=== PATIENT | male | born 1955 | race Caucasian/White ===

== ENCOUNTER → 2016-11-17 | Outpatient (CLI) | payer BC ==
[~2016-11-17] MED LIST: BUPIVACAINE MPF 0.25% 10 ML VIAL. ONE; IOHEXOL 300 MG/ML 50 ML VIAL. ONE; LIDOCAINE 1% PF 30 ML VIAL. ONE; methylPREDNISolone ACETATE 40 MG/ML VIAL. ONE
== END | disposition home or self-care (01) ==
LOC: SURG 14:00
PROVIDERS: ATTEND Anesthesiology Pain Medicine
DX: M54.16 Radiculopathy, lumbar region (principal); I10 Essential (primary) hypertension
CPT/HCPCS: 64483; 64484; J1030; J2001; J3490; Q9967

== ENCOUNTER → 2016-11-19 | Outpatient (CLI) | payer BC ==
--- NOTE | 2016-11-19 15:13 | RAD ---
Cervical spine radiograph 11/19/2016 at 1001 hours Indication: Neck pain and left finger numbness Comparison: None available Technique: AP, lateral and odontoid views of the cervical spine are provided. Findings: The cervical spine is visualized from the craniocervical junction through the inferior endplate of C7. There is minimal retrolisthesis of C4 on C5. Mild multilevel facet arthropathy is noted. There is anterior marginal osteophytosis from C4-C5 through C6-C7. Small posterior osteophyte is noted at C3-C4 and C4-C5. The lateral masses of C1 vertebral body articulate normally with C2. Mild uncovertebral joint arthropathy is noted. There is no prevertebral soft tissue swelling. Impression: Mild multilevel degenerative changes with minimal retrolisthesis of C4 on C5.
== END | disposition home or self-care (01) ==
LOC: DXRADRC 09:53
PROVIDERS: ATTEND Psychiatry & Neurology Neurology
DX: M47.892 Other spondylosis, cervical region (principal); M12.88 Other specific arthropathies, not elsewhere classified, other specified site; M25.78 Osteophyte, vertebrae; R20.0 Anesthesia of skin
CPT/HCPCS: 72040

== ENCOUNTER → 2017-01-12 | Outpatient (CLI) | payer BC ==
[~2017-01-12] MED LIST changes: +DEXAMETHASONE SOD PHOS 4 MG/ML VIAL ONE; -methylPREDNISolone ACETATE 40 MG/ML VIAL. ONE
== END | disposition home or self-care (01) ==
LOC: SURG 12:35
PROVIDERS: ATTEND Anesthesiology Pain Medicine
DX: M54.16 Radiculopathy, lumbar region (principal); I10 Essential (primary) hypertension
CPT/HCPCS: 64483; 64484; J1100; J2001; J3490; Q9967

== ENCOUNTER → 2017-08-19 | Outpatient (CLI) | payer BC ==
[~2017-08-19] MED LIST changes: -BUPIVACAINE MPF 0.25% 10 ML VIAL. ONE; -DEXAMETHASONE SOD PHOS 4 MG/ML VIAL ONE; +IOHEXOL 240 MG/ML 50ML VIAL. PO ONE; -IOHEXOL 300 MG/ML 50 ML VIAL. ONE; +IOHEXOL 300 MG/ML 75 ML VIAL. IV ONE; -LIDOCAINE 1% PF 30 ML VIAL. ONE
--- NOTE | 2017-08-19 16:37 | RAD ---
CT of the abdomen with and without contrast, 08/19/2017: HISTORY: Increased liver enzymes Multidetector CT imaging was performed prior to and following an IV bolus injection of iodinated contrast material. No oral contrast material was administered for this study. The postcontrast scans were obtained in a portal venous phase as well as two other delayed phases. There is a moderate volume of ascites in the abdomen. The hepatic margins are irregular compatible with hepatic cirrhosis. No hepatic mass is identified. There are several small gallstones in the gallbladder extending into the gallbladder neck. There is mild diffuse gallbladder wall thickening. No pancreatic abnormality is detected. The spleen is mildly enlarged measuring 13 cm in craniocaudad extent. No renal abnormality is detected. There is mild aortic calcific plaquing without evidence of aneurysm.No retroperitoneal adenopathy is seen. Several small celiac region lymph nodes are seen without definite pathologic enlargement. There is streaky increased density in the mesentery compatible with edema. No mesenteric adenopathy is identified. The bowel loops are not dilated. There are moderate scattered degenerative changes in the spine. IMPRESSION: 1. Hepatic cirrhosis with mild splenomegaly, moderate ascites and diffuse mesenteric edema compatible with associated portal hypertension. 2. No hepatic mass is identified. 3. Cholelithiasis with mild diffuse gallbladder wall thickening. PQRS Compliance Statement: One or more of the following individualized dose reduction techniques were utilized for this examination: 1. Automated exposure control 2. Adjustment of the mA and/or kV according to patient size 3. Use of iterative reconstruction technique Electronically signed by: Arthur Sage MD (08/19/2017 4:33 PM) [facility]
== END | disposition home or self-care (01) ==
LOC: PMG 10:34
PROVIDERS: ATTEND Physician Assistant Medical
DX: K74.60 Unspecified cirrhosis of liver (principal); K80.20 Calculus of gallbladder without cholecystitis without obstruction; R18.8 Other ascites; R16.1 Splenomegaly, not elsewhere classified
CPT/HCPCS: 74170; Q9967; 74160